=== PATIENT | female | born 1950 | race Caucasian/White ===

== ENCOUNTER 2020-06-13 08:32 | Outpatient (CLI) | payer OTHER | END 2020-06-13 08:39 | disposition home or self-care (01) | LOC: RAD 08:32 → EDBD 08:32 → RAD 08:39 | PROVIDERS: ATTEND Specialist | DX: R10.11 Right upper quadrant pain (principal); M48.061 Spinal stenosis, lumbar region without neurogenic claudication; G31.89 Other specified degenerative diseases of nervous system; R05 Cough ==